=== PATIENT | female | born 1970 | race African-American/Black ===

== ENCOUNTER 2021-07-22 07:40 | Day surgery (SDC) | payer BC, OTHER ==
[2021-07-21 12:06] VITALS: BMI 30.9
[2021-07-22] MEDS ORDERED: GUM MASTIC/STORAX/MSAL/ALCOHOL 1 DRP DROPSBTL MC ONE (08:53)
[2021-07-22] MEDS ORDERED: PROMETHAZINE HCL 25 MG/1 ML VIAL IVPUSH PRN (10:25)
[2021-07-22] MEDS ORDERED: oxyCODONE HCL 5 MG TABLET PO PRN (10:25)
[2021-07-22] MEDS ORDERED: ONDANSETRON 4 MG/2 ML VIAL IVPUSH PRN (10:25)
[2021-07-22] MEDS ORDERED: LACTATED RINGERS SOLUTION 1,000 ML IV SCH (10:30)
[2021-07-22] MEDS ORDERED: PROPOFOL 20 ML ONE ×4 (10:51→14:12)
[2021-07-22] MEDS ORDERED: MIDAZOLAM HCL 2 MG/2 ML SINGLE DOSE VIAL ONE (10:51)
[2021-07-22] MEDS ORDERED: ROCURONIUM BROMIDE 50 MG/5 ML SYRINGE ONE ×2 (11:03→13:15)
[2021-07-22] MEDS ORDERED: SUGAMMADEX SODIUM 200 MG/2 ML VIAL ONE (13:53)
[2021-07-22] MEDS ORDERED: METOPROLOL TARTRATE 5 MG/5 ML VIAL ONE (14:29)
[2021-07-22] MEDS ORDERED: ONDANSETRON 4 MG/2 ML VIAL ONE (15:08)
[2021-07-22] MEDS ORDERED: ACETAMINOPHEN INJECTION 100 ML IVPB ONE (15:08)
[2021-07-22] MEDS ORDERED: ACETAMINOPHEN 1000 MG/100 ML VIAL IVPB ONE (15:11)
[2021-07-22] MEDS ORDERED: PROMETHAZINE HCL 25 MG/1 ML VIAL ONE (15:34)
[2021-07-22 18:24] VITALS: BP 121/64; PULSE 88; TEMP 97.8
== END 2021-07-22 18:24 | disposition home or self-care (01) ==
LOC: FASU 07:40
PROVIDERS: ATTEND Plastic Surgery
PROC: 0HB5XZZ Excision of Chest Skin, External Approach (ICD-10-PCS; principal; 2021-07-22 11:25)
DX: N62 Hypertrophy of breast (principal)
CPT/HCPCS: 82962; 88305-TC; 94760; J0131